=== PATIENT | female | born 1935 | race Caucasian/White ===

== ENCOUNTER 2016-10-04 12:18 | Inpatient (IN) | payer MEDICARE ==
[~2016-10-04 12:18] MED LIST: AMITRIPTYLINE H10 MG PO; COLACE-T100 MG PO; EVISTA60 MG PO; LEVOXYL; MIRALAX17 GM PO; PRILOSEC OTC20 MG PO; REQUIP3 MG; SYNTHROID112 MC1 PO; VITAMIN D400 UNI1 PO
[2016-10-04] MEDS ORDERED: PREDNISONE10 M1 PO (12:33)
[2016-10-04] MEDS ORDERED: VIBRAMYCIN100 M1 PO (12:33)
[2016-10-04] MEDS ORDERED: QUETIAPINE FUMA25 M1 PO (12:35)
[2016-10-04] MEDS ORDERED: BUSPIRONE HCL7.5 M1 PO (12:36)
[2016-10-04] MEDS ORDERED: CYMBALTA30 M1 PO (12:36)
[2016-10-04] MEDS ORDERED: PREVAGEN PO (12:37)
[2016-10-04 13:30] LABS: EOS % 0.1 % (0-7); HCT-HEMATOCRIT 36.8 % (34.0-49.0); IMMATURE GRANULOCYTES ABSOLUTE 0.03 tho/cmm (0-0.03); IMMATURE GRANULOCYTES PERCENT 0.4 % (0-0.3); LYMPH % 6.2 % (20-45); LYMPH ABSOLUTE COUNT 0.5 tho/cmm (0.8-4.5); MCH (MEAN CORPUSCULAR HGB) 31.7 pg (28.0-32.0); MCHC MEAN CORPUSCULAR HGB CONC 32.6 % (32.0-36.0); MCV (MEAN CELL VOLUME) 97.1 fl (82.0-96.0); MEAN PLATELET VOLUME 9.4 cmc (9.4-12.4); MONO % 5.7 % (0-12); MONOCYTE ABSOLUTE COUNT 0.5 tho/cmm (0.0-1.2); NEUTROPHIL ABSOLUTE COUNT 7.2 tho/cmm (1.6-8.0); NEUTROPHIL-AUTOMATED 7.2 tho/cmm (1.6-8.0); NEUTROPHILS % 87.6 % (40-80); PLATELET COUNT 222 tho/cmm (150-450); RED BLOOD COUNT 3.79 mil/cmm (4.00-5.20); RED CELL DISTRIBUTION WIDTH 14.1 % (12.4-16.4); WHITE BLOOD COUNT 8.3 tho/cmm (4.0-10.0)
[2016-10-04 13:55] LABS: ANION GAP 15 mmol/L (0-20); BLOOD UREA NITROGEN 15 mg/dl (6-24); CALCIUM 8.6 mg/dl (8.5-10.5); CARBON DIOXIDE-VENOUS 24 mmol/L (22-32); CHLORIDE 104 mmol/l (96-110); CREATININE 0.88 mg/dl (0.50-1.10); GLUCOSE 137 mg/dL (70-110); POTASSIUM 3.8 mmol/L (3.7-5.1); SODIUM 139 mmol/L (135-145); eGFR VALUE FOR BLACK 71 mL/Min
[2016-10-04] MEDS ORDERED: VITAMIN B-121000 MC1 PO (14:22)
[2016-10-04] MEDS ORDERED: VITAMIN D35000 UNI2 PO (14:22)
[2016-10-04] MEDS ORDERED: MULTIVITAMINS1 EAC6 PO (14:22)
[2016-10-04] MEDS ORDERED: POLYETHYLENE GL17 G1 PO (14:31)
[2016-10-04 15:51] LABS: URINE BILIRUBIN NEGATIVE (NEG); URINE BLOOD NEGATIVE (NEG); URINE GLUCOSE (UA) NEGATIVE (NEG); URINE KETONE NEGATIVE (NEG); URINE LEUKOCYTE ESTERASE POSITIVE (NEG); URINE NITRITE NEGATIVE (NEG); URINE PH 6.5 (5.0-8.0); URINE PROTEIN SMALL (NEG); URINE SPECIFIC GRAVITY 1.015 (1.003-1.030)
[2016-10-04 15:52] LABS: URINE APPEARANCE CLEAR; URINE COLOR YELLOW
[2016-10-04 15:57] LABS: URINE BACTERIA 1+
[2016-10-05 05:06] LABS: HCT-HEMATOCRIT 35.2 % (34.0-49.0); HGB-HEMOGLOBIN 11.4 gm/dl (12.0-15.5); IMMATURE GRANULOCYTES ABSOLUTE 0.01 tho/cmm (0-0.03); IMMATURE GRANULOCYTES PERCENT 0.2 % (0-0.3); LYMPH % 19.6 % (20-45); LYMPH ABSOLUTE COUNT 0.9 tho/cmm (0.8-4.5); MCH (MEAN CORPUSCULAR HGB) 31.7 pg (28.0-32.0); MCHC MEAN CORPUSCULAR HGB CONC 32.4 % (32.0-36.0); MCV (MEAN CELL VOLUME) 97.8 fl (82.0-96.0); MEAN PLATELET VOLUME 9.5 cmc (9.4-12.4); MONOCYTE ABSOLUTE COUNT 0.8 tho/cmm (0.0-1.2); NEUTROPHILS % 63.2 % (40-80); PLATELET COUNT 208 tho/cmm (150-450); RED CELL DISTRIBUTION WIDTH 14.4 % (12.4-16.4); WHITE BLOOD COUNT 4.7 tho/cmm (4.0-10.0)
[2016-10-05 05:37] LABS: ALB/GLOB RATIO 0.6 (0.8-2.0); ALBUMIN 2.8 g/dl (3.5-5.0); ALKALINE PHOSPHATASE 76 U/L (33-138); ALT/SGPT 18 U/L (12-78); ANION GAP 10 mmol/L (0-20); AST/SGOT 18 U/L (10-40); BILIRUBIN,TOTAL 0.3 mg/dl (0-1.5); BLOOD UREA NITROGEN 10 mg/dl (6-24); CALCIUM 7.9 mg/dl (8.5-10.5); CARBON DIOXIDE-VENOUS 25 mmol/L (22-32); CHLORIDE 113 mmol/l (96-110); CREATININE 0.79 mg/dl (0.50-1.10); GLUCOSE 88 mg/dL (70-110); MAGNESIUM 1.9 mg/dl (1.8-2.6); POTASSIUM 3.9 mmol/L (3.7-5.1); SODIUM 144 mmol/L (135-145); eGFR VALUE FOR BLACK 81 mL/Min
[2016-10-05 06:37] LABS: PROCALCITONIN 0.05 ng/ml (0.05-0.09)
--- NOTE | 2016-10-05 15:30 | NUR ---
VIRTUAL CARE NOTE: PT SLEEPING-- HAS BEEN VERY AGITATED AND RESTLESS. DID NOT CALL PT AT THIS TIME SO NOT TO DISTURB HER NOW THAT SHE IS RESTING. WILL CONTINUE TO MONITOR. ELECTRONIC CHART REVIEWED.
--- NOTE | 2016-10-05 20:49 | NUR ---
CARLOS MARIE-PATIENT ASLEEP IN BED AND MILTON HER SON AT BEDSIDE. VISITED WITH HIM AND DISCUSSED THAT HER DEMENTIA WAS BOTHERING HER LAST NIGHT AND THAT SHE WAS AGITATED TODAY AND CONFUSED TRYING TO LEAVE SO SOME HALDOL WAS GIVEN TO HER. LET HIM KNOW THAT HALDOL WAS GIVEN TO HER AGAIN AT 1940 HENCE WHY SHE IS PROBABLY SLEEPING. WE DISCUSSED HER FALL A COUPLE OF WEEKS AGO WHILE GARDENING BUT NO INJURIES BUT SOME BRUISING. MILTON WILL BE HERE TILL 1130 TONIGHT AND HAD NO FURTHER QUESTIONS AND WAS FINE THAT WE DID NOT WAKE PATIENT. SHE WAS STARTING TO WAKE A LITTLE BEFORE I LEFT THE ROOM BUT HE SAID WE WOULD COULD JUST LET HER REST. CHIP HIS SISTER WILL BE IN TONIGHT. NO FURTHER QUESTIONS OR CONCERNS AT THIS TIME. AMOL REVIWED.
--- NOTE | 2016-10-06 17:34 | NUR ---
583-VIRTUAL NURSE ROUNDING-TALKED WITH DAUGHTER EVARISTO. STATES MOTHER IS DOING WELL, EXCEPT FOR COUGH. 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 NOTIFIED RN TO POSSIBLY TRY COUGH MEDICATION. DAUGHTER STATES SHE WORKS AT [employer] AND WOULD LIKE HER MOTHER AND FATHER TO GO THERE IF POSSIBLE AT DISCHARGE. PATIENT STATES SHE ISN'T SLEEPING WELL. Wan [place]
--- NOTE | 2016-10-06 21:46 | NUR ---
CARLOS MARIE-VISITED WITH PATIENT AND SON MILTON. PATIENT STATES HER ARM IS HURTING SOME SO I ASKED IF SHE WOULD LIKE SOME PAIN MEDICINE IT SAW SHE COULD HAVE SOME TYLENOL. SHE AGREED AND SON SAID GOOD IDEA. PATIENT STATES COUGH IS DOING BETTER AND I REMINDED HER TO CDB AND TO CALL FOR ASSISTANCE BEFORE GETTING UP. NO OTHER QUESTIONS OR CONCERNS FOR PATIENT OR MILTON. PAGED RN FOR TYLENOL. EMR REVIEWED.
--- NOTE | 2016-10-07 11:57 | NUR ---
VIRTUAL CARE NOTE: PT AWAKE, SITTING UP IN CHAIR, SON MILTON AT BEDSIDE. PT STATES SHE IS FEELING WELL TODAY, DENIES SOB, CP, PAIN AT THIS TIME. PT IS NOT ORIENTED TO PLACE ALTHOUGH ABLE TO STATE SHE IS IN [place]. PT REORIENTED TO HOSPITAL AND TX PLAN. PT/SON DENIES QUESTIONS/CONCERNS AT THIS TIME. ENC PT/FAMILY TO CALL VN NEEDED. VN WILL CONTINUE TO MONITOR ELECTRONIC RECORD AND FOLLOW W/ PT
[2016-10-07 18:01] LABS: PROCALCITONIN 0.08 ng/ml (0.05-0.09)
[2016-10-07 19:27] LABS: ABG CO2 ARTERIAL 26 mmol/L (21-27); ARTERIAL BLD GAS O2 SATURATION 94 % (95-98); ARTERIAL BLOOD GAS PCO2 37 mmHg (32-45); ARTERIAL PO2 68 mmHg (70-100); BICARBONATE 25 mmol/L (21-28); BLOOD GAS BASE EXCESS 2 mM/L (-/+3); PH 7.45 Units (7.35-7.45)
--- NOTE | 2016-10-07 21:14 | NUR ---
VIRTUAL CARE NOTE: PT. IN BED, DESCRIBES SHE IS A BIT EMOTIONAL TODAY. DESCRIBES SHE HAS HAD LOTS OF VISITORS TODAY. VERBAL ENCOURAGEMENT GIVEN THAT SHE HAS HAD LOTS OF TESTS DONE TODAY TO HELP HER GET BETTER AND THAT SHE WAS IMELDA TO HAVE SUCH A WONDERFUL FAMILY TO COME AND VISIT WITH HER. SHE STATED HER GRATEFULLNESS FOR THE ENCOURAGEMENT. INSTRUCTED TO TRY TO REMEMBER TO USE HER CALL LIGHT BEFORE SHE GOT UP AND WAIT FOR THE STAFF TO COME AND HELP HER SO SHE DIDN'T GET HURT. VOICES VERBAL UNDERSTANDING. PT. HAS HX OF FORGETFULNESS, WILL CONTINUE TO MONITOR.
[2016-10-08 06:11] LABS: BASO % 0.3 % (0-2); EOS % 2.1 % (0-7); EOSINOPHIL ABSOLUTE COUNT 0.1 tho/cmm (0.0-0.7); HCT-HEMATOCRIT 34.7 % (34.0-49.0); HGB-HEMOGLOBIN 11.7 gm/dl (12.0-15.5); IMMATURE GRANULOCYTES ABSOLUTE 0.02 tho/cmm (0-0.03); IMMATURE GRANULOCYTES PERCENT 0.3 % (0-0.3); MCH (MEAN CORPUSCULAR HGB) 32.1 pg (28.0-32.0); MCHC MEAN CORPUSCULAR HGB CONC 33.7 % (32.0-36.0); MCV (MEAN CELL VOLUME) 95.3 fl (82.0-96.0); MEAN PLATELET VOLUME 9.5 cmc (9.4-12.4); MONO % 9.9 % (0-12); MONOCYTE ABSOLUTE COUNT 0.7 tho/cmm (0.0-1.2); NEUTROPHIL ABSOLUTE COUNT 4.8 tho/cmm (1.6-8.0); NEUTROPHIL-AUTOMATED 4.8 tho/cmm (1.6-8.0); NEUTROPHILS % 72.4 % (40-80); PLATELET COUNT 168 tho/cmm (150-450); RED BLOOD COUNT 3.64 mil/cmm (4.00-5.20); RED CELL DISTRIBUTION WIDTH 14.1 % (12.4-16.4); WHITE BLOOD COUNT 6.7 tho/cmm (4.0-10.0)
[2016-10-08 06:24] LABS: ANION GAP 10 mmol/L (0-20); BLOOD UREA NITROGEN 4 mg/dl (6-24); CALCIUM 7.9 mg/dl (8.5-10.5); CARBON DIOXIDE-VENOUS 26 mmol/L (22-32); CHLORIDE 103 mmol/l (96-110); CREATININE 0.57 mg/dl (0.50-1.10); GLUCOSE 101 mg/dL (70-110); POTASSIUM 3.4 mmol/L (3.7-5.1); SODIUM 136 mmol/L (135-145); eGFR VALUE FOR BLACK >90 mL/Min
[2016-10-09 06:52] LABS: ANION GAP 8 mmol/L (0-20); BLOOD UREA NITROGEN 6 mg/dl (6-24); CALCIUM 7.9 mg/dl (8.5-10.5); CARBON DIOXIDE-VENOUS 29 mmol/L (22-32); CHLORIDE 103 mmol/l (96-110); CREATININE 0.61 mg/dl (0.50-1.10); GLUCOSE 123 mg/dL (70-110); POTASSIUM 3.4 mmol/L (3.7-5.1); SODIUM 137 mmol/L (135-145); eGFR VALUE FOR BLACK >90 mL/Min
--- NOTE | 2016-10-09 13:51 | NUR ---
VIRTUAL CARE NOTE: PT HAS HX OF DEMENTIA, DAUGTHER IN THE ROOM. DAUGHTER SAID PT DOING OK, DISCHARGE PLAN DISCUSSED WITH DAUGHTER, WILL TRANSFER TO [facility] ON MONDAY. PER MARISOL PT'S ALSO IN THE HOSPITAL HERE AND WILL BE DISCHARGED TO [facility] [place], FAMILY WILL PLAN ON TRANSPORTATION AT DISCHARGE. MARISOL DENIES ANY NEEDS OR CONCERNS AT THIS TIME.
[2016-10-10 05:16] LABS: BASO % 0.2 % (0-2); EOS % 2.3 % (0-7); EOSINOPHIL ABSOLUTE COUNT 0.2 tho/cmm (0.0-0.7); HCT-HEMATOCRIT 33.7 % (34.0-49.0); HGB-HEMOGLOBIN 11.2 gm/dl (12.0-15.5); IMMATURE GRANULOCYTES ABSOLUTE 0.02 tho/cmm (0-0.03); IMMATURE GRANULOCYTES PERCENT 0.3 % (0-0.3); LYMPH % 16.7 % (20-45); LYMPH ABSOLUTE COUNT 1.1 tho/cmm (0.8-4.5); MCH (MEAN CORPUSCULAR HGB) 31.6 pg (28.0-32.0); MCHC MEAN CORPUSCULAR HGB CONC 33.2 % (32.0-36.0); MCV (MEAN CELL VOLUME) 95.2 fl (82.0-96.0); MEAN PLATELET VOLUME 9.6 cmc (9.4-12.4); MONO % 14.3 % (0-12); NEUTROPHIL ABSOLUTE COUNT 4.4 tho/cmm (1.6-8.0); NEUTROPHIL-AUTOMATED 4.4 tho/cmm (1.6-8.0); NEUTROPHILS % 66.2 % (40-80); PLATELET COUNT 194 tho/cmm (150-450); RED BLOOD COUNT 3.54 mil/cmm (4.00-5.20); RED CELL DISTRIBUTION WIDTH 14.1 % (12.4-16.4); WHITE BLOOD COUNT 6.7 tho/cmm (4.0-10.0)
[2016-10-10 05:31] LABS: ANION GAP 11 mmol/L (0-20); BLOOD UREA NITROGEN 6 mg/dl (6-24); CALCIUM 8.7 mg/dl (8.5-10.5); CARBON DIOXIDE-VENOUS 28 mmol/L (22-32); CHLORIDE 100 mmol/l (96-110); CREATININE 0.64 mg/dl (0.50-1.10); GLUCOSE 111 mg/dL (70-110); SODIUM 135 mmol/L (135-145); eGFR VALUE FOR BLACK >90 mL/Min
[2016-10-10 05:34] LABS: POTASSIUM 4.3 mmol/L (3.7-5.1)
== END 2016-10-10 14:15 | DRG 190 ==
LOC: EDMED 12:18 → EMR2 18:51 → 5WD 18:59
PROVIDERS: Family Medicine; Internal Medicine; Internal Medicine Pulmonary Disease; Nurse Practitioner Family; ADMIT Hospitalist
DX: J44.0 Chronic obstructive pulmonary disease with (acute) lower respiratory infection (principal); J12.2 Parainfluenza virus pneumonia; G93.40 Encephalopathy, unspecified; B48.8 Other specified mycoses; J98.09 Other diseases of bronchus, not elsewhere classified; R13.10 Dysphagia, unspecified; G30.9 Alzheimer's disease, unspecified; F02.80 Dementia in other diseases classified elsewhere, unspecified severity, without behavioral disturbance, psychotic disturbance, mood disturbance, and anxiety; J98.11 Atelectasis; M19.90 Unspecified osteoarthritis, unspecified site; Z86.010 Personal history of colon polyps; Z96.651 Presence of right artificial knee joint; E03.9 Hypothyroidism, unspecified; Z91.81 History of falling; G25.81 Restless legs syndrome; K21.9 Gastro-esophageal reflux disease without esophagitis
CPT/HCPCS: G8996-GN-CI; G8997-GN-CI; J0456; J0696; J1630; J1650; J1956; J2405; J7030; J7050; Q9967